=== PATIENT | female | born 1975 | race Caucasian/White ===

== ENCOUNTER → 2020-09-18 | Outpatient (CLI) | payer OTHER ==
--- NOTE | 2020-09-18 16:52 | US ---
EXAMINATION TYPE: US pelvis complete transvag DATE OF EXAM: 09/18/2020 COMPARISON: None CLINICAL HISTORY: N92.1 Excessive and frequent menstruation with irr. TECHNIQUE: Transvaginal (TV) and Transabdominal (TA) . Transabdominal sonographic images of the pel vis were acquired. Transvaginal sonographic images were medically necessary to better assess the fol lowing anatomy: Date of LMP: 08/20/2020 EXAM MEASUREMENTS: Uterus: 10.5 x 3.7 x 4.2 cm Endometrial Stripe: 0.7 cm Right Ovary: 6.5 x 4.3 x 4.5 cm Left Ovary: 6.8 x 4.8 x 4.5 cm 1. Uterus: Anteverted wnl 2. Endometrium: wnl 3. Right Ovary: 4.4 x 3.6 x 3.8 cm hypoechoic structure. This most likely represents a hemorrhagic c yst. Other etiologies include dermoid, or endometrioma or cystadenoma. Follow up sonographic study of the pelvis is recommended in 6 weeks. 4. Left Ovary: 5.2 x 3.9 x 4.4 cm cyst. 5. Bilateral Adnexa: wnl 6. Posterior cul-de-sac: no free fluid IMPRESSION: 1. Heterogeneous cystic structure in the right ovary measuring 4.4 cm most suggestive of a hemorrhagi c cyst. Follow-up sonographic study of the pelvis is recommended in 6 weeks. 2. 5.2 cm right ovarian cyst. Due to size, a yearly sonographic follow-up is recommended.
== END | disposition home or self-care (01) ==
LOC: RADUSWWP 14:20
PROVIDERS: ATTEND Obstetrics & Gynecology
DX: N83.201 Unspecified ovarian cyst, right side (principal); N92.1 Excessive and frequent menstruation with irregular cycle
CPT/HCPCS: 76830; 76856

== ENCOUNTER → 2020-11-05 | Outpatient (CLI) | payer OTHER ==
--- NOTE | 2020-11-05 15:05 | US ---
EXAMINATION TYPE: US pelvic complete DATE OF EXAM: 11/05/2020 COMPARISON: US 09/18/2020 CLINICAL HISTORY: N83.0 ovarian cyst. FOLLOW UP OVARIAN CYST TECHNIQUE: Transabdominal (TA). Transabdominal sonographic images of the pelvis were acquired. Date of LMP: Patient stated bleeding entire month of October. EXAM MEASUREMENTS: Uterus: 9.0 x 3.7 x 4.6 cm Endometrial Stripe: 0.6 cm Right Ovary: 3.3 x 3.7 x 4.5 cm Left Ovary: 2.9 x 1.6 2.5 cm 1. Uterus: Anteverted Nabothian cysts, otherwise wnl 2. Endometrium: wnl 3. Right Ovary: Previous complex lesion still visualized today = 5.7 x 4.0 x 5.8 cm 4. Left Ovary: wnl, Previous cyst appear resolved 5. Bilateral Adnexa: wnl 6. Posterior cul-de-sac: No free fluid. IMPRESSION: 1. Left ovarian cyst has resolved. 2. Complex right ovarian cystic lesion measuring 5.7 cm x 4.0 x 5.8 cm is seen. This previously measu red 4.4 x 3.6 x 3.8 cm. This is larger on today's study. Gynecologic evaluation is recommended. This may represent a hemorrhagic cyst but is indeterminate. There is also interval enlargement. Cystic michael plasm cannot be excluded.
== END | disposition home or self-care (01) ==
LOC: RADUSWWP 12:26
PROVIDERS: ATTEND Obstetrics & Gynecology
DX: N83.00 Follicular cyst of ovary, unspecified side (principal)
CPT/HCPCS: 76856

== ENCOUNTER 2020-11-28 06:27 | Day surgery (SDC) | payer OTHER ==
--- NOTE | 2020-11-27 21:13 | P.HPOB ---
History of Present Illness H&P Date: 11/27/20 Chief Complaint: DAREN I and II This is a 45 y.o. female, 1, para 1, who presents for colposcopy with loop electrocautery excision procedure due to DAREN I and II on colposcopy. Endocervical curettage showed DAREN I, biopsy at 2 o'clock showed DAREN I, and biopsy at 4 o'clock showed DAREN II. Her pap prior to colposcopy showed ASCUS with positive high risk HPV. OB Hx: . History of 1 vaginal delivery. Motor [employer] Hx: No hx of STDs. Hx of abnormal pap about 25 years ago. Social Hx: . Does office work in a factory. Review of Systems Constitutional: Reports weight gain, Denies chills, Denies fever Eyes: denies blurred vision, denies pain Ears, nose, mouth and throat: Denies sore throat Cardiovascular: Denies chest pain, Denies shortness of breath Respiratory: Denies cough Gastrointestinal: Denies abdominal pain, Denies diarrhea, Denies nausea, Denies vomiting Genitourinary: Reports dysmenorrhea, Reports menorrhagia Menstruation: Reports period heavy Musculoskeletal: Reports low back pain Integumentary: Reports rash (hands), Denies pruritus Neurological: Reports headaches, Denies numbness, Denies weakness Psychiatric: Denies anxiety, Denies depression Endocrine: Reports flushing Past Medical History Past Medical History: Hyperlipidemia History of Any Multi-Drug Resistant Organisms: None Reported Past Surgical History: Orthopedic Surgery Additional Past Surgical History / Comment(s): CARPAL RIGHT TUNNEL Past Anesthesia/Blood Transfusion Reactions: Motion Sickness Past Psychological History: No Psychological Hx Reported Smoking Status: Former smoker Past Alcohol Use History: None Reported Additional Past Alcohol Use History / Comment(s): SMOKED 27, 1PPD QUIT 2017. Past Drug Use History: None Reported - Past Family History Mother Family Medical History: COPD Medications and Allergies Home Medications Medication Instructions Recorded Confirmed Type Acetaminophen [Tylenol] 325 - 650 mg PO Q6H PRN 11/25/20 11/28/20 History Cetirizine HCl [Zyrtec] 10 mg PO QAM 11/25/20 11/28/20 History Cyanocobalamin (Vitamin B-12) 5,000 mcg PO DAILY 11/25/20 11/28/20 History [Vitamin B12] Fenofibrate,Micronized 67 mg PO DAILY 11/25/20 11/28/20 History [Fenofibrate] Ferrous Sulfate [Slow Fe] 1 tab PO DAILY 11/25/20 11/28/20 History Fiber Tab 1 tab PO DAILY 11/25/20 11/28/20 History Ginkgo Biloba 1 tab PO DAILY 11/25/20 11/28/20 History Multivitamins, Thera [Multivitamin 1 tab PO DAILY 11/25/20 11/28/20 History (formulary)] Norethindrone-E.estradiol-Iron 1 tab PO QAM 11/25/20 11/28/20 History [Junel Fe 1 mg-20 Mcg Tablet] Vitamin B Complex 1 cap PO DAILY 11/25/20 11/28/20 History Allergies Allergy/AdvReac Type Severity Reaction Status Date / Time No Known Allergies Allergy Verified 11/28/20 06:54 Exam Osteopathic Statement: *. No significant issues noted on an osteopathic structural exam other than those noted in the History and Physical/Consult. HEENT: within normal limits Heart: regular rate and rhythm Lungs: clear to auscultation bilaterally Abdomen: soft, non-tender Pelvic: uterus sl. enlarged, mildly tender, mildly tender adnexa bilaterally Extemities: neg. Quiana's Assessment and Plan (1) DAREN I (cervical intraepithelial neoplasia I) Current Visit: No Status: Acute Code(s): N87.0 - MILD CERVICAL DYSPLASIA SNOMED Code(s): 430880114 (2) DAREN II (cervical intraepithelial neoplasia II) Current Visit: No Status: Acute Code(s): N87.1 - MODERATE CERVICAL DYSPLASIA SNOMED Code(s): 366392711 Plan: Proceed with colposcopy with loop electrocautery excision procedure. I have discussed the risks, benefits, and alternative therapies for the above- mentioned procedure and for both sedation/anesthesia as well as necessary blood products administration, if indicated, as they pertain to this patient. The patient has indicated her understanding and acceptance of the risks and procedures discussed.
[~2020-11-28 06:27] MED LIST: LACTATED RINGERS 1,000 ML IV SCH; Pre Op ABX Message 1 EACH MISC MISCELLANE ONE
[2020-11-28] MEDS ORDERED: ONDANSETRON 4 MG/2 ML VIAL ONE (06:44)
[2020-11-28] MEDS ORDERED: SCOPOLAMINE 1.5MG/72HR PATCH TRANSDERM ONE (07:11)
[2020-11-28] MEDS ORDERED: DEXAMETHASONE SOD PHOSPHATE 4 MG/ML 1 ML VIAL IVP ONE (07:11)
[2020-11-28] MEDS ORDERED: LIDOCAINE 1% INJ 10MG/ML (20 ML MDV) ONE (07:24)
[2020-11-28] MEDS ORDERED: PROPOFOL 10 MG/ML 20 ML VIAL IV ONE (07:24)
[2020-11-28] MEDS ORDERED: KETOROLAC 15 MG/ML 1 ML VIAL ONE (07:24)
[2020-11-28] MEDS ORDERED: MIDAZOLAM 2 MG/2 ML VIAL ONE (07:24)
[2020-11-28] MEDS ORDERED: fentaNYL (PF) 50 MCG/ML 2 ML AMP ONE (07:24)
[2020-11-28] MEDS ORDERED: ACETIC ACID 15 DROPS/ML DROPS MISCELLANE ONE (07:42)
[2020-11-28] MEDS ORDERED: IODINE/POTASS IOD (LUGOLS) BOTTLE TOPICAL ONE (07:44)
[2020-11-28] MEDS ORDERED: LIDOCAINE 1%-EPI 1:100,000 20 ML VIAL SUBMUCOSAL ONE (07:46)
[2020-11-28] MEDS ORDERED: BUPIVACAINE (PF) 0.5% 30 ML VIAL MISCELLANE ONE (07:46)
[2020-11-28] MEDS ORDERED: FERRIC SUBSULFATE (MONSELS) JAR TOPICAL ONE ×2 (07:59→08:09)
--- NOTE | 2020-11-28 08:05 | P.OP ---
Date of Procedure: 11/28/20 Preoperative Diagnosis: DAREN-1 and 2 Postoperative Diagnosis: Cervical dysplasia Procedure(s) Performed: Colposcopy with loop electrocautery excision procedure Anesthesia: ERICA Surgeon: Kait Parish Estimated Blood Loss (ml): 10 Pathology: other (#1-Ectocervix with 12:00 marked with black suture, 6:00 marked with a white suture, and 9:00 marked with blue suture. #2-endocervix) Condition: stable Disposition: same day Indications for Procedure: This is a 45 y.o. female, 1, para 1, who presents for colposcopy with loop electrocautery excision procedure due to DAREN I and II on colposcopy. Endocervical curettage showed DAREN I, biopsy at 2 o'clock showed DAREN I, and biops y at 4 o'clock showed DAREN II. Her pap prior to colposcopy showed ASCUS with positive high risk HPV. Operative Findings: Entire transition zone is visualized and does extend far out on the edges of the cervix. Some coarse mosaicism is noted around the 4:00 border. There is acetowhite and Lugol white areas along the entire left side of the cervix. Description of Procedure: Patient is taken to the operating room where she is placed in the dorsal lithotomy position. She is prepped and draped in the normal sterile fashion. Her bladder is drained with a catheter. A coated bivalve speculum was placed in the patient's vagina. Colposcopy is performed using a blue light. The cervix is swabbed with 5% acetic acid solution. The above noted findings are made. Next the cervix is swabbed with Lugol solution. The above noted findings are made. Next the cervix was circumferentially injected with a 50-50 mixture quarter percent Marcaine and 1% lidocaine. Approximately 10 mL are used. Next a sidewall retractor was also placed to better visualize the cervix. A large loop using 35 W of cutting power was used to swipe from left to right across the top of the cervix. The large loop was also used to swipe from left to right along the lower border of the cervix. The midsection of the cervix was then swipe from left to right. Next a small loop was used to remove the endocervix. A ball-tipped cautery was then used to cauterize the bed left behind. Excellent hemostasis was noted. Monsel solution was applied. Good hemostasis is noted. Next the specimens are marked at the 12 o'clock position with a black suture, the 6 o'clock position with a white suture, and the 9 o'clock position with a loose suture for identification. Endocervix is not marked. All sponge and needle counts are correct. Taken to recovery room in stable condition.
[2020-11-28 08:17] VITALS: TEMP 97
[2020-11-28] MEDS ORDERED: ALBUTEROL NEBULIZED 2.5 MG/3 ML INHALATION ONE ×2 (08:41→08:45)
[2020-11-28 09:50] VITALS: RESP 18
[2020-11-28 10:23] VITALS: BP 110/77; PULSE 107
== END 2020-11-28 10:36 | disposition home or self-care (01) ==
LOC: OR 06:27
PROVIDERS: ATTEND Obstetrics & Gynecology
DX: N87.1 Moderate cervical dysplasia (principal); N87.0 Mild cervical dysplasia; E78.5 Hyperlipidemia, unspecified; Z87.891 Personal history of nicotine dependence; Z83.6 Family history of other diseases of the respiratory system; Z79.899 Other long term (current) drug therapy; Z79.3 Long term (current) use of hormonal contraceptives; J45.909 Unspecified asthma, uncomplicated
CPT/HCPCS: 81025; 57461; J2250; J1100; J2405; J2001; J3010; J1885; J2704; 88305; 88307

== ENCOUNTER → 2020-12-23 | Outpatient (CLI) | payer OTHER ==
--- NOTE | 2020-12-24 07:14 | US ---
EXAMINATION TYPE: US pelvic complete DATE OF EXAM: 12/23/2020 COMPARISON: 11/05/2020 CLINICAL HISTORY: N83.0 Follicular cyst of right ovary. Follow up right ovarian cysts TECHNIQUE: Transabdominal (TA). Date of LMP: 12/16/2020, EXAM MEASUREMENTS: Uterus: 8.6 x 4.4 x 3.4 cm Endometrial Stripe: 0.4 cm Right Ovary: 6.5 x 2.3 x 2.4 cm Left Ovary: 4.3 x 2.7 x 2.1 cm 1. Uterus: Anteverted wnl 2. Endometrium: wnl 3. Right Ovary: cystic lesion with internal echoes= 4.5 x 4.2 x 5.1 cm 4. Left Ovary: Follicles seen 5. Bilateral Adnexa: wnl 6. Posterior cul-de-sac: no free fluid Cervix- nabothian cyst IMPRESSION: 1. Persistent complex right ovarian cyst measuring 5.1 cm. Differential diagnosis would include benig n hemorrhagic cyst. Other etiologies including ovarian neoplasms in the differential diagnosis correl ate clinically.
== END | disposition home or self-care (01) ==
LOC: RADUSWWP 15:35
PROVIDERS: ATTEND Obstetrics & Gynecology
DX: N83.01 Follicular cyst of right ovary (principal)
CPT/HCPCS: 76856; 86304